=== PATIENT | male | born 1940 | race Caucasian/White ===

== ENCOUNTER 2025-08-30 17:41 | Emergency (ER) | payer MEDICARE, OTHER ==
[2025-08-30 18:36] LABS: #Basophils 4.0 thou/uL (0.0-0.2); #Eosinophils 0.0 thou/uL (0.0-0.7); #Lymphocytes 0.5 thou/uL (1.20-3.40); #Monocytes 0.5 thou/uL (0.11-0.59); #Neutrophils 9.0 thou/uL (1.40-6.50); %Basophils 3.9 % (0.0-1.0); %Eosinophils 0.2 % (0.0-10.0); %Lymphocytes 4.7 % (21.0-51.0); %Monocytes 4.4 % (0.0-10.0); %Neutrophils 86.7 % (42.0-75.0); Hematocrit 51.0 % (42.0-52.0); Hemoglobin 16.8 g/dL (14.0-18.0); Mean Corpuscular Hemoglobin 29.4 pg (27.0-31.0); Mean Corpuscular Volume 89.4 fl (78.0-98.0); Platelet Count 147 10x3/uL (130-400); Red Blood Cell (RBC) Count 5.71 mill/uL (4.70-6.10); White Blood Cell (WBC) Count 10.3 10x3/uL (4.8-10.8)
[2025-08-30 18:42] LABS: ALT (SGPT) 35 U/L (Less than 45); AST (SGOT) 49 U/L (11-34); Albumin 3.5 g/dL (3.1-4.5); Alkaline Phosphatase 89 U/L (40-110); Anion Gap 16 mmol/L (10-20); BUN (Urea Nitrogen) 16 mg/dL (8.4-25.7); Bilirubin, Total 0.8 mg/dL (0.3-1.2); Calc. Creatinine Clearance 0 mL/min (70-130); Calcium 8.7 mg/dL (7.8-10.44); Carbon Dioxide 21 mmol/L (23-31); Chloride 106 mmol/L (98-107); Globulin 2.6 g/dL (2.4-3.5); Glucose 177 mg/dL (83-110); Potassium 4.0 mmol/L (3.5-5.1); Sodium 139 mmol/L (136-145)
[2025-08-30 18:44] LABS: Troponin I 0.024 ng/mL (< 0.028)
[2025-08-30 19:55] LABS: Glucose, Urine (Dipstick) Negative (Negative); Leukocyte Negative (Negative); Protein, Urine (Dipstick) Negative (Neg-Trace); Specific Gravity, Urine 1.010 (1.005-1.030)
[2025-08-30 20:08] LABS: CAUTI Indications for Culture Pelvic or flank pain; WBC/HPF None Seen HPF (0-3)
[2025-08-30 20:09] LABS: Urine Culture Reflex No No
[2025-08-30] MEDS ORDERED: Ketorolac Tromethamine 30 MG (1 mL) VIAL ONE (20:18)
[2025-08-30] MEDS ORDERED: Acetaminophen 500 MG TAB ONE (20:18)
[2025-08-30] MEDS ORDERED: Ondansetron PF 4 MG/2 ML Vial ONE (20:18)
== END 2025-08-30 22:20 | disposition home or self-care (01) ==
LOC: NAV ERS 17:41
DX: J40 Bronchitis, not specified as acute or chronic (principal); J32.9 Chronic sinusitis, unspecified; K52.9 Noninfective gastroenteritis and colitis, unspecified; I10 Essential (primary) hypertension; J44.9 Chronic obstructive pulmonary disease, unspecified
CPT/HCPCS: 71045; 71275; 80053; 81001; 83880; 84484; 85025; 85379; 93005; 96361; 96374; 96375; J1885; J2405; J7030